=== PATIENT | female | born 1975 | race Caucasian/White ===

== ENCOUNTER → 2017-11-11 | Outpatient (CLI) | payer OTHER ==
--- NOTE | 2017-11-11 13:43 | RADIOLOGY IMAGING REPORT ---
FACILITY: [facility] PATIENT NAME: Skyla Jordan : 1975 MR: [id number] V: [id number] EXAM DATE: ORDERING PHYSICIAN: MOISE PINA TECHNOLOGIST: Location: [facility] Patient: Skyla Jordan : 1975 Visit/Account:[id number] Date of Sevice: 11/11/2017 Technique: ANKLE 3 VIEW MIN LEFT HISTORY: Lateral and posterior ankle pain Comparison studies: None FINDINGS: There is no acute fracture. The alignment of the ankle mortise is maintained. No ankle join t effusion. IMPRESSION: 1. No acute osseous process. Report Dictated By: Bijan Pittman DO at 11/11/2017 1:39 PM Report E-Signed By: Bijan Pittman DO at 11/11/2017 1:40 PM WSN:[id number]
== END ==
LOC: RAD 12:34
PROVIDERS: ATTEND Nurse Practitioner Family
DX: M25.572 Pain in left ankle and joints of left foot (principal)